=== PATIENT | male | born 1985 | race Hispanic/Latino ===

== ENCOUNTER 2020-02-02 19:02 | Emergency (ER) | payer OTHER ==
[~2020-02-02] VITALS: Ht 182.9 cm; Wt 90.7 kg
[~2020-02-02 19:02] MED LIST: AMARYL2 MG PO; BENTYL10 MG PO; CIPROFLOXACIN500 MG PO; DIPHENOXYLATE-1 EACH PO; METFORMIN HCL500 MG PO; PHENERGAN SUPP25 MG PO; PROMETHAZINE HC25 M1 PO; ULTRAM50 MG PO; VICOPROFEN 2001 EACH PO; ZOFRAN ODT4 MG PO
[2020-02-02] MEDS ORDERED: MORPHINE SULFATE INJ 4 MG/ML INJ 1ML IV STA (20:06)
[2020-02-02] MEDS ORDERED: ONDANSETRON HCL INJ 2MG/ML 2ML 2 MG/ML VIAL IV STA (20:06)
[2020-02-02 20:14] LABS: BASOPHILS % 0.4 % (0.0-1.0); EOSINOPHILS # (AUTO) 0.1 (0.0-0.4); EOSINOPHILS % 0.8 % (0.0-6.0); HEMATOCRIT 46.3 % (38.2-49.6); LYMPHOCYTES # (AUTO) 1.6 (1.0-3.2); LYMPHOCYTES % 19.3 % (18.0-39.1); MEAN CORPUSCULAR HGB CONC 34.6 g/dL (31-35); MEAN CORPUSCULAR VOLUME 86.7 fL (81-99); MONOCYTES # (AUTO) 0.6 (0.2-0.8); MONOCYTES % 7.4 % (4.4-11.3); NEUTROPHILS # (AUTO) 6.1 (2.1-6.9); NEUTROPHILS % 71.7 % (38.7-80.0); PLATELET COUNT 265 x10e3/uL (140-360); RED BLOOD COUNT 5.34 x10e6/uL (4.3-5.7); RED CELL DISTRIBUTION WIDTH 12.4 % (11.7-14.4)
[2020-02-02] MEDS ORDERED: SODIUM CHLORIDE 0.9% 1000ML 1,000 ML IV SCH (20:15)
[2020-02-02] MEDS ORDERED: DIATRIZOATE MEGL/DIATRIZOA SOD 30 ML BTL PO ONE (20:21)
[2020-02-02 20:34] LABS: ALANINE AMINOTRANSFERASE 27 IU/L (0-55); ALBUMIN 4.4 g/dL (3.5-5.0); ALBUMIN/GLOBULIN RATIO 1.3 (0.8-2.0); ALKALINE PHOSPHATASE 99 IU/L (40-150); ANION GAP 17.2 mmol/L (8-16); BLOOD UREA NITROGEN 15 mg/dL (7-26); BUN/CREATININE RATIO 15 (6-25); CALCIUM 9.5 mg/dL (8.4-10.2); CARBON DIOXIDE 20 mmol/L (22-29); CHLORIDE 103 mmol/L (98-107); CREATININE, SERUM 0.97 mg/dL (0.72-1.25); EST GLOMERULAR FILTRATION RATE > 60 ML/MIN (60-); GLUCOSE 139 mg/dL (74-118); POTASSIUM 4.2 mmol/L (3.5-5.1); SODIUM 136 mmol/L (136-145)
[2020-02-02 20:44] LABS: AMYLASE 74 U/L (25-125); LIPASE 17 U/L (8-78)
[2020-02-02 21:16] LABS: CLARITY,URINE CLEAR (CLEAR); COLOR,URINE YELLOW (YELLOW)
[2020-02-02 21:17] LABS: BILIRUBIN,URINE NEGATIVE (NEGATIVE); KETONES,URINE NEGATIVE (NEGATIVE); LEUKOCYTE ESTERASE ,URINE NEGATIVE (NEGATIVE); NITRITE,URINE NEGATIVE (NEGATIVE); PROTEIN,URINE DIPSTICK 2+ (NEGATIVE); URINE UROBILINOGEN 0.2 mg/dL (0.2 - 1)
[2020-02-02 21:28] LABS: BACTERIA,URINE FEW /HPF; EPITHELIAL CELLS,URINE RARE /LPF; WBC,URINE (MAN) 0-5 /HPF (0-5)
[2020-02-02 22:53] VITALS: BP 140/87
[2020-02-03] MEDS ORDERED: SODIUM CHLORIDE 0.9% 50ML 50 ML ONE (00:32)
[2020-02-03] MEDS ORDERED: IOPAMIDOL 370 MG/ML 200 ML INFUS..BTL INJ ONE (00:32)
[2020-02-03] MEDS ORDERED: LISINOPRIL2.5 MG PO (10:42)
[2020-02-03] MEDS ORDERED: FENOFIBRATE145 MG PO (10:42)
[2020-02-03] MEDS ORDERED: GABAPENTIN300 MG PO (10:42)
[2020-02-03] MEDS ORDERED: ZOFRAN4 MG PO (10:42)
[2020-02-06] MEDS ORDERED: BASAGLAR K100 UNIT/1 SQ (09:32)
[2020-02-06] MEDS ORDERED: HUMULIN R100 UNIT/2 SQ (09:32)
[2020-02-25] MEDS ORDERED: PHENERGAN25 MG/1 M1 PO (14:32)
== END 2020-02-02 23:07 | disposition home or self-care (01) ==
LOC: ER 19:32
DX: R10.32 Left lower quadrant pain (principal); R10.31 Right lower quadrant pain; R11.2 Nausea with vomiting, unspecified; K50.90 Crohn's disease, unspecified, without complications
CPT/HCPCS: 36415; 74177; 80053; 81001; 82150; 83690; 85025; 96374; 96375; 99284; J2270; J2405; J7030; Q9967

== ENCOUNTER → 2020-02-06 | Day surgery (SDC) | payer OTHER ==
[~2020-02-06] MED LIST changes: +BASAGLAR K100 UNIT/1 SQ; +DICYCLOMINE HCL20 MG PO; +FENOFIBRATE145 MG PO; +FENTANYL CITRATE/PF 100MCG/2 ML INJ ONE; +GABAPENTIN300 MG PO; +GLUCAGON FOR INJ 1 MG VIAL ONE; +HUMULIN R100 UNIT/2 SQ; +HYOSCYAMINE 0.125 MG TAB ONE; +LIDOCAINE HCL 2% LOCAL INJ 5 ML SDV VIAL INJ ONE; +LISINOPRIL2.5 MG PO; +METOCLOPRAMIDE HCL 10 MG/2ML VIAL ONE; +METOCLOPRAMIDE10 MG PO; +MIDAZOLAM HCL 5 MG/ML VIAL ONE; +PANTOPRAZOLE 40 MG 10ML VIAL ONE; +PROPOFOL IV EMULSION 10 MG/ML 20 ML VIAL ONE; +ZOFRAN4 MG PO
[2020-02-06 11:50] VITALS: BP 105/81
--- NOTE | 2020-02-06 12:13 | Operative Report ---
DATE OF PROCEDURE: 02/06/2020 SURGEON: Myles Rodríguez MD PROCEDURES: EGD with biopsies and a colonoscopy with polypectomy. INDICATIONS FOR EGD: Heartburn indigestion, nausea, vomiting. INDICATIONS FOR COLONOSCOPY: Personal history of colon polyps, history of Crohn's disease. MEDICATIONS: The patient was done under MAC, please see anesthesiologist's note. PROCEDURE IN DETAIL: With the patient in left lateral decubitus position, a flexible fiberoptic Olympus gastroscope was introduced into the esophagus under direct visualization without difficulty. There was some patchy erythema noted in distal esophagus. The scope was then advanced with ease into the stomach, mucosa overlying the antrum revealed some patchy areas of intense erythema, there was a single erosion noted; biopsies were obtained and sent to stain for H. pylori. A uumgnhog-[id number]-vhrba amount of retained undigested food was noted in the stomach precluding visualization of the proximal body as well as the fundus. The pylorus was of normal contour and shape, it was intubated with ease and the scope was advanced all the way to the second portion of the duodenum. Biopsies were obtained from the proximal second portion and the duodenal bulb to rule out sprue. The scope was then withdrawn back into the stomach and retroflexed, and minimal part of the fundus was visualized, and the cardia appeared to be within normal limits. The scope was then straightened out, it was subsequently withdrawn. The patient tolerated the procedure well. IMPRESSION: 1. Distal esophagitis, mild. 2. Gastritis, biopsied, biopsies sent to stain for H. pylori. 3. Aetswxkh-ob-kbfqd amount of retained undigested food stuff precluding visualization of fundus and proximal body. 4. Rule out sprue. PLAN: 1. Follow up histology. 2. Initiate Protonix 40 mg one p.o. q.a.m. a.c. DESCRIPTION OF PROCEDURE: The patient was then turned around after adequate lubrication of the anal canal, a flexible fiberoptic Olympus colonoscope was inserted into the rectum with ease and advanced all the way to approximately the distal transverse colon; it was not advanced any further, secondary to the presence of large amount of retained fecal material. The scope was then withdrawn slowly, whatever was visualized, mucosa overlying the descending colon grossly appeared to be within normal limits. Other than for a minute polyp, that was removed per hot biopsy forceps. Whatever visualized of the sigmoid and the rectum appeared to be within normal limits. The scope was retroflexed into the distal rectum, small internal hemorrhoids were noted, none of which was actively bleeding. The scope was then straightened out, it was subsequently withdrawn. The patient tolerated the procedure well. IMPRESSION: 1. Poor prep colonoscopy to approximately distal transverse colon, it could not be advanced any further due to the presence of a large amount of retained fecal material. 2. Descending colon polyp, hot biopsied. 3. Internal hemorrhoids, none actively bleeding. PLAN: 1. Followup histology. 2. The patient will need a repeat colonoscopy after a better prep. Myles Rodríguez MD [facility] [place] /[id number]
== END | disposition home or self-care (01) ==
LOC: OR 07:58
PROVIDERS: ATTEND Internal Medicine Gastroenterology
DX: K29.50 Unspecified chronic gastritis without bleeding (principal); K63.5 Polyp of colon; K29.80 Duodenitis without bleeding; K20.90 Esophagitis, unspecified without bleeding; K50.90 Crohn's disease, unspecified, without complications; K31.89 Other diseases of stomach and duodenum; K21.9 Gastro-esophageal reflux disease without esophagitis; K59.00 Constipation, unspecified; K64.8 Other hemorrhoids; E78.5 Hyperlipidemia, unspecified; E11.9 Type 2 diabetes mellitus without complications; F41.9 Anxiety disorder, unspecified; Z01.810 Encounter for preprocedural cardiovascular examination; Z01.812 Encounter for preprocedural laboratory examination; Z11.59 Encounter for screening for other viral diseases; Z79.4 Long term (current) use of insulin; Z68.28 Body mass index [BMI] 28.0-28.9, adult
CPT/HCPCS: 36415; 43239; 45384; 82948; 93005; C9113; J1610; J2001; J2704; J2765; U0002; 45378; J2250; J3010

== ENCOUNTER 2020-02-07 10:02 | Emergency (ER) | payer OTHER ==
[~2020-02-07] VITALS: Ht 182.9 cm; Wt 93.0 kg
[~2020-02-07 10:02] MED LIST changes: -DICYCLOMINE HCL20 MG PO; -FENTANYL CITRATE/PF 100MCG/2 ML INJ ONE; -GLUCAGON FOR INJ 1 MG VIAL ONE; -HYOSCYAMINE 0.125 MG TAB ONE; -LIDOCAINE HCL 2% LOCAL INJ 5 ML SDV VIAL INJ ONE; -METOCLOPRAMIDE HCL 10 MG/2ML VIAL ONE; -METOCLOPRAMIDE10 MG PO; -MIDAZOLAM HCL 5 MG/ML VIAL ONE; -PANTOPRAZOLE 40 MG 10ML VIAL ONE; -PROPOFOL IV EMULSION 10 MG/ML 20 ML VIAL ONE
[2020-02-07] MEDS ORDERED: MORPHINE SULFATE 2 MG/ML SYR 1ML IV STA (10:47)
[2020-02-07] MEDS ORDERED: METOCLOPRAMIDE HCL 10 MG/2ML VIAL IV ONE (11:00)
[2020-02-07] MEDS ORDERED: SODIUM CHLORIDE 0.9% 1000ML 1,000 ML IV SCH (11:00)
[2020-02-07] MEDS ORDERED: MORPHINE SULFATE INJ 4 MG/ML INJ 1ML IV ONE (11:15)
[2020-02-07] MEDS ORDERED: SODIUM CHLORIDE 0.9% 1000ML 1,000 ML ONE (11:30)
[2020-02-07] MEDS ORDERED: METOCLOPRAMIDE HCL 10 MG/2ML VIAL ONE (11:30)
[2020-02-07] MEDS ORDERED: MORPHINE SULFATE INJ 4 MG/ML INJ 1ML ONE (11:30)
[2020-02-07] MEDS ORDERED: PANTOPRAZOLE 40 MG 10ML VIAL IV STA (12:38)
[2020-02-07] MEDS ORDERED: METOCLOPRAMIDE10 MG PO ×2 (12:53→13:06)
[2020-02-07] MEDS ORDERED: DICYCLOMINE HCL20 MG PO (13:05)
[2020-02-07 14:10] VITALS: BP 120/80
[2020-02-25] MEDS ORDERED: PHENERGAN25 MG/1 M1 PO (14:32)
== END 2020-02-07 13:20 | disposition home or self-care (01) ==
LOC: FSED 10:15
DX: R11.10 Vomiting, unspecified (principal); R19.7 Diarrhea, unspecified; R10.32 Left lower quadrant pain; E11.65 Type 2 diabetes mellitus with hyperglycemia; K50.90 Crohn's disease, unspecified, without complications; E86.0 Dehydration; E78.5 Hyperlipidemia, unspecified
CPT/HCPCS: 80048; 80076; 81003; 85025; 99284; C9113; J2270; J2765; J7030

== ENCOUNTER → 2020-03-04 | Day surgery (SDC) | payer OTHER ==
[~2020-03-04] MED LIST changes: +DICYCLOMINE HCL20 MG PO; +FENTANYL CITRATE/PF 100MCG/2 ML INJ ONE; +HYOSCYAMINE 0.125 MG TAB ONE; +HYOSCYAMINE SULFATE 0.5 MG/ML INJ IV ONE; +METOCLOPRAMIDE10 MG PO; +MIDAZOLAM HCL 2 MG/2 ML VIAL ONE; +PHENERGAN25 MG/1 M1 PO; +PROPOFOL IV EMULSION 10 MG/ML 20 ML VIAL ONE
[2020-03-04 12:38] VITALS: BP 121/86
[2020-03-04 12:53] LABS: WBC,FECAL (FECAL LACTOFERRIN) NEGATIVE (NEGATIVE)
[2020-03-04 13:59] LABS: ANION GAP 14.4 mmol/L (8-16); BLOOD UREA NITROGEN 13 mg/dL (7-26); BUN/CREATININE RATIO 12 (6-25); CALCIUM 9.6 mg/dL (8.4-10.2); CARBON DIOXIDE 24 mmol/L (22-29); CHLORIDE 104 mmol/L (98-107); CREATININE, SERUM 1.05 mg/dL (0.72-1.25); EST GLOMERULAR FILTRATION RATE > 60 ML/MIN (60-); GLUCOSE 99 mg/dL (74-118); POTASSIUM 4.4 mmol/L (3.5-5.1); SODIUM 138 mmol/L (136-145)
[2020-03-04 14:50] LABS: C DIFFICILE TOXIN A&B AMP PROB NEGATIVE (NEGATIVE)
== END | disposition home or self-care (01) ==
LOC: OR 07:51
PROVIDERS: ATTEND Internal Medicine Gastroenterology
DX: K50.90 Crohn's disease, unspecified, without complications (principal); K52.9 Noninfective gastroenteritis and colitis, unspecified; K64.8 Other hemorrhoids; K62.89 Other specified diseases of anus and rectum; R12 Heartburn; Z86.010 Personal history of colon polyps; Z68.38 Body mass index [BMI] 38.0-38.9, adult; Z87.19 Personal history of other diseases of the digestive system; E11.9 Type 2 diabetes mellitus without complications; F41.9 Anxiety disorder, unspecified; Z79.4 Long term (current) use of insulin; Z01.812 Encounter for preprocedural laboratory examination; Z20.828 Contact with and (suspected) exposure to other viral communicable diseases
CPT/HCPCS: 36415; 45380; 80048; 82948; 83630; 83993; 85651; 86140; 86256; 86671; 87045; 87177; 87328; 87493; J1980; J2250; J2704; J3010; U0002; 45378

== ENCOUNTER 2020-08-17 23:18 | Emergency (ER) | payer OTHER ==
[~2020-08-17] VITALS: Ht 182.9 cm; Wt 93.0 kg
[~2020-08-17 23:18] MED LIST changes: -FENTANYL CITRATE/PF 100MCG/2 ML INJ ONE; -HYOSCYAMINE 0.125 MG TAB ONE; -HYOSCYAMINE SULFATE 0.5 MG/ML INJ IV ONE; -MIDAZOLAM HCL 2 MG/2 ML VIAL ONE; -PROPOFOL IV EMULSION 10 MG/ML 20 ML VIAL ONE
[2020-08-17] MEDS ORDERED: CEFTRIAXONE SOD 1 GM VIAL ONE (23:43)
[2020-08-17] MEDS ORDERED: CEFTRIAXONE SOD 1 GM VIAL IM ONE (23:45)
== END 2020-08-18 00:08 | disposition home or self-care (01) ==
LOC: FSED 23:37
DX: L03.116 Cellulitis of left lower limb (principal); E11.40 Type 2 diabetes mellitus with diabetic neuropathy, unspecified; E78.5 Hyperlipidemia, unspecified; K50.90 Crohn's disease, unspecified, without complications
CPT/HCPCS: 99282; J0696

== ENCOUNTER 2021-09-05 06:54 | Inpatient (IN) | payer OTHER ==
[~2021-09-05] VITALS: Ht 182.9 cm; Wt 93.0 kg
[2021-09-05] MEDS ORDERED: ONDANSETRON HCL INJ 2MG/ML 2ML 2 MG/ML VIAL IV STA (07:03)
[2021-09-05] MEDS ORDERED: SODIUM CHLORIDE 0.9% 1000ML 1,000 ML IV ONE (07:15)
[2021-09-05] MEDS ORDERED: SODIUM CHLORIDE 0.9% 1000ML 1,000 ML ONE (07:17)
[2021-09-05 07:37] LABS: BASOPHILS % 0.3 % (0.0-1.0); EOSINOPHILS # (AUTO) 0.2 (0.0-0.4); EOSINOPHILS % 1.5 % (0.0-6.0); HEMATOCRIT 45.1 % (38.2-49.6); HEMOGLOBIN 15.6 g/dL (14.0-18.0); LYMPHOCYTES # (AUTO) 1.9 (1.0-3.2); MEAN CORPUSCULAR HEMOGLOBIN 30.8 pg (28-32); MEAN CORPUSCULAR HGB CONC 34.6 g/dL (31-35); MEAN CORPUSCULAR VOLUME 89.1 fL (81-99); MONOCYTES # (AUTO) 0.9 (0.2-0.8); MONOCYTES % 8.9 % (4.4-11.3); NEUTROPHILS # (AUTO) 7.3 (2.1-6.9); NEUTROPHILS % 70.9 % (38.7-80.0); PLATELET COUNT 257 x10e3/uL (140-360); RED BLOOD COUNT 5.06 x10e6/uL (4.3-5.7); RED CELL DISTRIBUTION WIDTH 12.4 % (11.7-14.4)
[2021-09-05 07:43] LABS: CLARITY,URINE CLEAR (CLEAR); COLOR,URINE YELLOW (YELLOW); KETONES,URINE NEGATIVE (NEGATIVE); LEUKOCYTE ESTERASE ,URINE NEGATIVE (NEGATIVE); NITRITE,URINE NEGATIVE (NEGATIVE); PROTEIN,URINE DIPSTICK 1+ (NEGATIVE); URINE UROBILINOGEN 0.2 mg/dL (0.2 - 1)
[2021-09-05] MEDS ORDERED: Morphine 4mg INJECTION 4 MG/ML INJ IV STA (07:52)
[2021-09-05] MEDS ORDERED: METHYLPREDNISOLONE SOD SUCC 125 MG/2ML VIAL IV ONE (08:00)
[2021-09-05 08:04] LABS: BACTERIA,URINE FEW /HPF; EPITHELIAL CELLS,URINE MODERATE /LPF; RBC,URINE 0-5 /HPF (0-5); WBC,URINE (MAN) 0-5 /HPF (0-5)
[2021-09-05 08:18] LABS: ALBUMIN 3.5 g/dL (3.5-5.0); ALBUMIN/GLOBULIN RATIO 0.9 (0.8-2.0); ANION GAP 14.8 mmol/L (8-16); CALCIUM 8.2 mg/dL (8.4-10.2); CREATININE, SERUM 1.01 mg/dL (0.72-1.25); POTASSIUM 3.8 mmol/L (3.5-5.1)
[2021-09-05] MEDS ORDERED: IOPAMIDOL 370 MG/ML 100 ML INFUS..BTL INJ ONE (08:43)
[2021-09-05] MEDS ORDERED: PROMETHAZINE 12.5MG/ NACL 0.9% 12.5 MG/50 ML BAG IV ONE (09:15)
[2021-09-05] MEDS ORDERED: Morphine 4mg INJECTION 4 MG/ML INJ IV PRN (10:15)
[2021-09-05] MEDS ORDERED: ONDANSETRON HCL INJ 2MG/ML 2ML 2 MG/ML VIAL IV PRN (10:15)
[2021-09-05] MEDS ORDERED: DEXTROSE 50% SYRINGE 50 ML IV PRN (10:30)
[2021-09-05] MEDS: SODIUM CHLORIDE 0.9% 1000ML 1,000 ML IV SCH ×2 (10:49→21:12)
[2021-09-05 12:15] VITALS: BP 125/84
[2021-09-05] MEDS: INSULIN LISPRO 100 UNIT/1 ML 3ML VIAL SQ SCH ×3 (12:27→21:17)
[2021-09-05] MEDS ORDERED: K-DUR10 MEQ PO (12:39)
[2021-09-05] MEDS: HYDROMORPHONE 1MG/1ML INJ IV PRN ×3 (12:55→20:05)
[2021-09-05] MEDS ORDERED: DICYCLOMINE HCL 20 MG TAB PO PRN (13:00)
[2021-09-05] MEDS: CIPROFLOXACIN 400 MG/D5W 200ML 200 ML IV SCH (14:00)
[2021-09-05 16:19] VITALS: BP 123/88
[2021-09-05] MEDS ORDERED: INSULIN REGULAR, HUMAN 100 UNIT/1 ML SQ SCH (16:30)
[2021-09-05] MEDS: PROMETHAZINE 12.5MG/ NACL 0.9% 12.5 MG/50 ML BAG IV PRN ×2 (16:32→20:05)
[2021-09-05 20:00] VITALS: BP 112/71
[2021-09-05] MEDS: INSULIN GLARGINE 100 UNITS/ML VIAL SQ SCH (21:19)
[2021-09-06] VITALS (8 sets, daily range): BP systolic 98–118; BP diastolic 66–87
[2021-09-06] MEDS: PROMETHAZINE 12.5MG/ NACL 0.9% 12.5 MG/50 ML BAG IV PRN (00:09)
[2021-09-06] MEDS: HYDROMORPHONE 1MG/1ML INJ IV PRN ×9 (00:09→21:29)
[2021-09-06] MEDS: CIPROFLOXACIN 400 MG/D5W 200ML 200 ML IV SCH ×2 (01:20→12:00)
[2021-09-06] MEDS ORDERED: SODIUM CHLORIDE 0.9% 250ML 250 ML ONE (01:45)
[2021-09-06] MEDS: SODIUM CHLORIDE 0.9% 1000ML 1,000 ML IV SCH ×3 (02:26→17:00)
[2021-09-06] MEDS: DICYCLOMINE HCL 20 MG TAB PO SCH ×3 (05:54→21:29)
[2021-09-06 05:57] LABS: BASOPHILS % 0.2 % (0.0-1.0); EOSINOPHILS % 0.2 % (0.0-6.0); HEMATOCRIT 38.2 % (38.2-49.6); HEMOGLOBIN 12.9 g/dL (14.0-18.0); LYMPHOCYTES % 22.3 % (18.0-39.1); MEAN CORPUSCULAR HEMOGLOBIN 31.2 pg (28-32); MEAN CORPUSCULAR HGB CONC 33.8 g/dL (31-35); MEAN CORPUSCULAR VOLUME 92.3 fL (81-99); MONOCYTES # (AUTO) 0.9 (0.2-0.8); NEUTROPHILS # (AUTO) 6.1 (2.1-6.9); NEUTROPHILS % 66.9 % (38.7-80.0); PLATELET COUNT 202 x10e3/uL (140-360); RED BLOOD COUNT 4.14 x10e6/uL (4.3-5.7); RED CELL DISTRIBUTION WIDTH 12.5 % (11.7-14.4)
[2021-09-06 06:19] LABS: ALBUMIN 2.8 g/dL (3.5-5.0); ALBUMIN/GLOBULIN RATIO 0.9 (0.8-2.0); ANION GAP 11.4 mmol/L (8-16); CALCIUM 7.5 mg/dL (8.4-10.2); CREATININE, SERUM 0.81 mg/dL (0.72-1.25); POTASSIUM 3.4 mmol/L (3.5-5.1)
[2021-09-06] MEDS ORDERED: POTASSIUM CHLORIDE 20 MEQ TAB CR PO ONE (08:00)
[2021-09-06] MEDS: INSULIN LISPRO 100 UNIT/1 ML 3ML VIAL SQ SCH ×7 (09:00→21:00)
[2021-09-06] MEDS: LISINOPRIL 2.5 MG TAB PO SCH (09:09)
[2021-09-06] MEDS: FENOFIBRATE 145 MG TAB PO SCH (09:09)
[2021-09-06 20:30] LABS: WBC,FECAL (FECAL LACTOFERRIN) POSITIVE (NEGATIVE)
[2021-09-06] MEDS: INSULIN GLARGINE 100 UNITS/ML VIAL SQ SCH (21:00)
[2021-09-07] VITALS (8 sets, daily range): BP systolic 118–131; BP diastolic 81–89
[2021-09-07] MEDS: HYDROMORPHONE 1MG/1ML INJ IV PRN ×6 (00:45→21:15)
[2021-09-07] MEDS: PROMETHAZINE 12.5MG/ NACL 0.9% 12.5 MG/50 ML BAG IV PRN ×2 (00:45→09:45)
[2021-09-07] MEDS: CIPROFLOXACIN 400 MG/D5W 200ML 200 ML IV SCH ×2 (01:00→12:45)
[2021-09-07 05:58] LABS: BASOPHILS % 0.2 % (0.0-1.0); EOSINOPHILS # (AUTO) 0.1 (0.0-0.4); EOSINOPHILS % 1.5 % (0.0-6.0); HEMATOCRIT 38.7 % (38.2-49.6); HEMOGLOBIN 13.1 g/dL (14.0-18.0); LYMPHOCYTES # (AUTO) 1.7 (1.0-3.2); LYMPHOCYTES % 20.9 % (18.0-39.1); MEAN CORPUSCULAR HGB CONC 33.9 g/dL (31-35); MEAN CORPUSCULAR VOLUME 91.5 fL (81-99); MONOCYTES # (AUTO) 0.6 (0.2-0.8); MONOCYTES % 7.1 % (4.4-11.3); NEUTROPHILS # (AUTO) 5.7 (2.1-6.9); NEUTROPHILS % 69.8 % (38.7-80.0); PLATELET COUNT 204 x10e3/uL (140-360); RED BLOOD COUNT 4.23 x10e6/uL (4.3-5.7); RED CELL DISTRIBUTION WIDTH 12.8 % (11.7-14.4)
[2021-09-07] MEDS: DICYCLOMINE HCL 20 MG TAB PO SCH ×3 (06:08→21:27)
[2021-09-07] MEDS: SODIUM CHLORIDE 0.9% 1000ML 1,000 ML IV SCH ×3 (06:08→18:02)
[2021-09-07 06:32] LABS: ALBUMIN 2.7 g/dL (3.5-5.0); ANION GAP 10.6 mmol/L (8-16); CALCIUM 7.3 mg/dL (8.4-10.2); CREATININE, SERUM 0.81 mg/dL (0.72-1.25); MAGNESIUM 1.5 MG/DL (1.3-2.1); POTASSIUM 3.6 mmol/L (3.5-5.1)
[2021-09-07] MEDS: INSULIN LISPRO 100 UNIT/1 ML 3ML VIAL SQ SCH ×7 (07:30→21:00)
[2021-09-07] MEDS: FENOFIBRATE 145 MG TAB PO SCH (09:28)
[2021-09-07] MEDS: LISINOPRIL 2.5 MG TAB PO SCH (09:29)
[2021-09-07 15:40] LABS: C DIFFICILE TOXIN A&B AMP PROB NEGATIVE (NEGATIVE)
[2021-09-07] MEDS: INSULIN GLARGINE 100 UNITS/ML VIAL SQ SCH (21:00)
[2021-09-08] VITALS (8 sets, daily range): BP systolic 123–131; BP diastolic 88–97
[2021-09-08] MEDS: HYDROMORPHONE 1MG/1ML INJ IV PRN ×6 (00:20→22:40)
[2021-09-08] MEDS: CIPROFLOXACIN 400 MG/D5W 200ML 200 ML IV SCH ×2 (01:00→13:40)
[2021-09-08] MEDS: DICYCLOMINE HCL 20 MG TAB PO SCH ×3 (05:00→21:56)
[2021-09-08] MEDS: SODIUM CHLORIDE 0.9% 1000ML 1,000 ML IV SCH ×4 (05:00→23:00)
[2021-09-08 05:52] LABS: BASOPHILS % 0.3 % (0.0-1.0); EOSINOPHILS # (AUTO) 0.1 (0.0-0.4); EOSINOPHILS % 1.7 % (0.0-6.0); HEMATOCRIT 39.8 % (38.2-49.6); HEMOGLOBIN 13.5 g/dL (14.0-18.0); LYMPHOCYTES # (AUTO) 1.4 (1.0-3.2); LYMPHOCYTES % 18.8 % (18.0-39.1); MEAN CORPUSCULAR HGB CONC 33.9 g/dL (31-35); MEAN CORPUSCULAR VOLUME 91.3 fL (81-99); MONOCYTES # (AUTO) 0.7 (0.2-0.8); MONOCYTES % 9.5 % (4.4-11.3); NEUTROPHILS # (AUTO) 5.2 (2.1-6.9); NEUTROPHILS % 69.2 % (38.7-80.0); PLATELET COUNT 236 x10e3/uL (140-360); RED BLOOD COUNT 4.36 x10e6/uL (4.3-5.7); RED CELL DISTRIBUTION WIDTH 12.6 % (11.7-14.4)
[2021-09-08 06:12] LABS: ALANINE AMINOTRANSFERASE 14 IU/L (0-55); ALBUMIN 2.6 g/dL (3.5-5.0); ALBUMIN/GLOBULIN RATIO 0.9 (0.8-2.0); ALKALINE PHOSPHATASE 57 IU/L (40-150); ANION GAP 13.1 mmol/L (8-16); BLOOD UREA NITROGEN < 5 mg/dL (7-26); CALCIUM 7.1 mg/dL (8.4-10.2); CARBON DIOXIDE 24 mmol/L (22-29); CHLORIDE 106 mmol/L (98-107); CREATININE, SERUM 0.75 mg/dL (0.72-1.25); GLUCOSE 126 mg/dL (74-118); MAGNESIUM 1.3 MG/DL (1.3-2.1); POTASSIUM 3.1 mmol/L (3.5-5.1); SODIUM 140 mmol/L (136-145)
[2021-09-08 06:13] LABS: BUN/CREATININE RATIO 7 (6-25)
[2021-09-08] MEDS: INSULIN LISPRO 100 UNIT/1 ML 3ML VIAL SQ SCH ×7 (07:30→21:56)
[2021-09-08] MEDS: LISINOPRIL 2.5 MG TAB PO SCH (08:43)
[2021-09-08] MEDS ORDERED: POTASSIUM CHLORIDE 20 MEQ TAB CR PO ONE (09:00)
[2021-09-08] MEDS: FENOFIBRATE 145 MG TAB PO SCH (09:00)
[2021-09-08] MEDS ORDERED: MAGNESIUM SULFATE 2GM/50ML 50 ML IV ONE (09:00)
[2021-09-08] MEDS ORDERED: PROPOFOL IV EMULSION 10 MG/ML 20 ML VIAL ONE (11:54)
[2021-09-08] MEDS ORDERED: MIDAZOLAM HCL 5 MG/ML VIAL ONE (13:26)
[2021-09-08] MEDS ORDERED: FENTANYL CITRATE/PF 100MCG/2 ML INJ ONE (13:26)
[2021-09-08 14:27] LABS: MAGNESIUM 1.9 MG/DL (1.3-2.1); POTASSIUM 3.8 mmol/L (3.5-5.1)
[2021-09-08] MEDS ORDERED: SUCRALFATE 1 GM/10 ML SUSP NG ONE (18:35)
[2021-09-08] MEDS: PROMETHAZINE 12.5MG/ NACL 0.9% 12.5 MG/50 ML BAG IV PRN (21:56)
[2021-09-08] MEDS: SUCRALFATE 1 GM/10 ML SUSP NG SCH (21:56)
[2021-09-08] MEDS: INSULIN GLARGINE 100 UNITS/ML VIAL SQ SCH (21:57)
[2021-09-09] VITALS: BP 142/89
[2021-09-09] MEDS: CIPROFLOXACIN 400 MG/D5W 200ML 200 ML IV SCH (01:15)
[2021-09-09] MEDS: HYDROMORPHONE 1MG/1ML INJ IV PRN ×2 (02:47→08:50)
[2021-09-09 04:00] VITALS: BP 118/84
[2021-09-09] MEDS: DICYCLOMINE HCL 20 MG TAB PO SCH (05:55)
[2021-09-09 06:56] LABS: ANION GAP 12.3 mmol/L (8-16); BLOOD UREA NITROGEN < 5 mg/dL (7-26); CALCIUM 7.2 mg/dL (8.4-10.2); CARBON DIOXIDE 26 mmol/L (22-29); CHLORIDE 105 mmol/L (98-107); CREATININE, SERUM 0.83 mg/dL (0.72-1.25); GLUCOSE 169 mg/dL (74-118); MAGNESIUM 1.7 MG/DL (1.3-2.1); POTASSIUM 3.3 mmol/L (3.5-5.1); SODIUM 140 mmol/L (136-145)
[2021-09-09 06:57] LABS: BUN/CREATININE RATIO 6 (6-25)
[2021-09-09] MEDS: INSULIN LISPRO 100 UNIT/1 ML 3ML VIAL SQ SCH ×2 (07:30→08:45)
[2021-09-09 08:20] VITALS: BP 123/84
[2021-09-09 08:50] VITALS: BP 123/84
[2021-09-09] MEDS: SODIUM CHLORIDE 0.9% 1000ML 1,000 ML IV SCH (08:50)
[2021-09-09] MEDS: LISINOPRIL 2.5 MG TAB PO SCH (08:50)
[2021-09-09] MEDS: SUCRALFATE 1 GM/10 ML SUSP NG SCH (08:57)
[2021-09-09] MEDS ORDERED: DICYCLOMINE HCL20 MG PO (09:05)
[2021-09-09] MEDS ORDERED: PANTOPRAZOLE SO40 MG PO (09:05)
[2021-09-09] MEDS ORDERED: METRONIDAZOLE500 MG PO (09:08)
[2021-09-09] MEDS ORDERED: CIPRO500 MG PO (09:08)
[2021-09-09] MEDS ORDERED: MAGNESIUM OXIDE 400 MG TAB PO ONE (09:45)
[2021-09-09] MEDS ORDERED: POTASSIUM CHLORIDE 20 MEQ TAB CR PO ONE (09:45)
[2021-09-09] MEDS ORDERED: CARAFATE1 GM/10 ML PO (10:39)
== END 2021-09-09 11:17 | disposition home or self-care (01) | DRG 386 ==
LOC: ER 08:02 → ERHOLD 10:08 → MED/SURG2 11:55 → OBSVTOIN 12:43
PROVIDERS: ADMIT Internal Medicine; ATTEND Internal Medicine
PROC: 0DB78ZX Excision of Stomach, Pylorus, Via Natural or Artificial Opening Endoscopic, Diagnostic (ICD-10-PCS; 2021-09-08)
PROC: 0DB58ZX Excision of Esophagus, Via Natural or Artificial Opening Endoscopic, Diagnostic (ICD-10-PCS; principal; 2021-09-08 17:27)
DX: K50.918 Crohn's disease, unspecified, with other complication (principal); K65.4 Sclerosing mesenteritis; N17.9 Acute kidney failure, unspecified; K29.70 Gastritis, unspecified, without bleeding; A04.8 Other specified bacterial intestinal infections; K20.0 Eosinophilic esophagitis; I25.10 Atherosclerotic heart disease of native coronary artery without angina pectoris; E78.5 Hyperlipidemia, unspecified; I12.9 Hypertensive chronic kidney disease with stage 1 through stage 4 chronic kidney disease, or unspecified chronic kidney disease; N18.1 Chronic kidney disease, stage 1; Z79.899 Other long term (current) drug therapy; K52.9 Noninfective gastroenteritis and colitis, unspecified; R15.2 Fecal urgency; E11.22 Type 2 diabetes mellitus with diabetic chronic kidney disease; E78.2 Mixed hyperlipidemia; E11.40 Type 2 diabetes mellitus with diabetic neuropathy, unspecified; Z88.8 Allergy status to other drugs, medicaments and biological substances; E86.0 Dehydration
CPT/HCPCS: 36415; 43239; 74177; 80048; 80053; 81001; 82270; 82948; 83630; 83690; 83735; 83993; 84132; 85025; 86141; 87045; 87177; 87493; 88305; 88312; 88342; 96361; 99284; J1170; J2250; J2270; J2405; J2543; J2550; J2930; J3010; J3475; J7030; J7050; Q9967

== ENCOUNTER 2022-01-26 14:37 | Emergency (ER) | payer OTHER ==
[~2022-01-26] VITALS: Ht 180.3 cm; Wt 95.3 kg
[~2022-01-26 14:37] MED LIST changes: +CARAFATE1 GM/10 ML PO; +CIPRO500 MG PO; +K-DUR10 MEQ PO; +METRONIDAZOLE500 MG PO; +PANTOPRAZOLE SO40 MG PO; -ZOFRAN4 MG PO; +ZOFRAN4 MG SL
== END 2022-01-26 16:35 | disposition home or self-care (01) ==
LOC: FSED 14:54
DX: R20.0 Anesthesia of skin (principal); G45.9 Transient cerebral ischemic attack, unspecified; E11.65 Type 2 diabetes mellitus with hyperglycemia; E11.40 Type 2 diabetes mellitus with diabetic neuropathy, unspecified; E78.5 Hyperlipidemia, unspecified; Z87.19 Personal history of other diseases of the digestive system
CPT/HCPCS: 70450; 72125; 80053; 82553; 84484; 85025; 99284

== ENCOUNTER 2022-01-28 06:24 | Inpatient (IN) | payer OTHER ==
[~2022-01-28] VITALS: Ht 180.3 cm; Wt 98.6 kg
[2022-01-28 06:54] LABS: BASOPHILS % 0.3 % (0.0-1.0); EOSINOPHILS # (AUTO) 0.3 (0.0-0.4); LYMPHOCYTES # (AUTO) 2.3 (1.0-3.2); MEAN CORPUSCULAR HEMOGLOBIN 30.5 pg (28-32); MEAN CORPUSCULAR HGB CONC 33.3 g/dL (31-35); MEAN CORPUSCULAR VOLUME 91.4 fL (81-99); MONOCYTES # (AUTO) 0.8 (0.2-0.8); MONOCYTES % 9.9 % (4.4-11.3); NEUTROPHILS # (AUTO) 4.4 (2.1-6.9); PLATELET COUNT 216 x10e3/uL (140-360); RED BLOOD COUNT 5.25 x10e6/uL (4.3-5.7); RED CELL DISTRIBUTION WIDTH 11.9 % (11.7-14.4)
[2022-01-28 06:59] LABS: AMPHETAMINES SCREEN,URINE NEGATIVE (NEGATIVE); BENZODIAZEPINES SCREEN,URINE NEGATIVE (NEGATIVE); PHENCYCLIDINE SCREEN,URINE NEGATIVE (NEGATIVE)
[2022-01-28] MEDS ORDERED: IOPAMIDOL 370 MG/ML 100 ML INFUS..BTL INJ ONE (07:05)
[2022-01-28] MEDS ORDERED: SODIUM CHLORIDE 0.9% 100 ML ONE (07:06)
[2022-01-28 07:14] LABS: ALBUMIN 3.9 g/dL (3.5-5.0); ALBUMIN/GLOBULIN RATIO 1.2 (0.8-2.0); ANION GAP 14.7 mmol/L (8-16); CREATININE, SERUM 1.2 mg/dL (0.72-1.25); POTASSIUM 3.7 mmol/L (3.5-5.1)
[2022-01-28] MEDS ORDERED: Morphine 4mg INJECTION 4 MG/ML INJ IV PRN (07:45)
[2022-01-28] MEDS ORDERED: ONDANSETRON HCL INJ 2MG/ML 2ML 2 MG/ML VIAL IV PRN (07:45)
[2022-01-28 08:58] LABS: CHOL/HDL RATIO 7.9 (3.9-4.7); CHOLESTEROL 252 MD/DL (0-199); HDL CHOLESTEROL 32 MG/DL (40-60); TRIGLYCERIDES 464 MG/DL (0-149)
[2022-01-28] MEDS: CLOPIDOGREL BISULFATE 75 MG TAB PO SCH (09:13)
[2022-01-28] MEDS: ASPIRIN 81 MG CHEW TAB PO SCH (09:13)
[2022-01-28 09:18] LABS: THYROID STIMULATING HORMONE 5.781 uIU/mL (0.350-4.940)
[2022-01-28 09:28] LABS: CREATINE KINASE MB 2.4 ng/mL (0-5.0)
[2022-01-28] MEDS ORDERED: NEURONTIN300 MG PO (10:12)
[2022-01-28] MEDS ORDERED: INFLUENZA VIRUS VAC SPLIT INJ 0.5 ML SYR IM SCH (10:30)
[2022-01-28 11:30] VITALS: BP 112/75
[2022-01-28 11:33] VITALS: BP 112/75
[2022-01-28 15:27] VITALS: BP 121/78
[2022-01-28 16:38] LABS: CREATINE KINASE 139 IU/L (30-200)
[2022-01-28] MEDS ORDERED: ENOXAPARIN SOD INJ 40 MG/0.4 ML SYR SC SCH (17:00)
[2022-01-28 17:39] LABS: FREE T4 (FREE THYROXINE) 0.94 ng/dL (0.8-1.8)
[2022-01-28 20:00] VITALS: BP 118/83
[2022-01-28] MEDS ORDERED: ATORVASTATIN 40 MG TAB PO SCH (21:00)
[2022-01-28 23:13] VITALS: BP 118/83
[2022-01-28 23:54] VITALS: BP 110/77
[2022-01-29 04:00] VITALS: BP 126/87
[2022-01-29 06:28] LABS: BASOPHILS % 0.2 % (0.0-1.0); EOSINOPHILS # (AUTO) 0.3 (0.0-0.4); EOSINOPHILS % 5.5 % (0.0-6.0); HEMATOCRIT 47.6 % (38.2-49.6); LYMPHOCYTES # (AUTO) 1.7 (1.0-3.2); LYMPHOCYTES % 29.5 % (18.0-39.1); MEAN CORPUSCULAR HEMOGLOBIN 30.9 pg (28-32); MEAN CORPUSCULAR HGB CONC 33.6 g/dL (31-35); MEAN CORPUSCULAR VOLUME 91.9 fL (81-99); MONOCYTES # (AUTO) 0.7 (0.2-0.8); MONOCYTES % 11.4 % (4.4-11.3); NEUTROPHILS # (AUTO) 3.1 (2.1-6.9); NEUTROPHILS % 52.7 % (38.7-80.0); PLATELET COUNT 208 x10e3/uL (140-360); RED BLOOD COUNT 5.18 x10e6/uL (4.3-5.7); RED CELL DISTRIBUTION WIDTH 11.9 % (11.7-14.4)
[2022-01-29 07:13] LABS: ALBUMIN 3.6 g/dL (3.5-5.0); ALBUMIN/GLOBULIN RATIO 0.9 (0.8-2.0); ANION GAP 17.9 mmol/L (8-16); CALCIUM 8.7 mg/dL (8.4-10.2); CREATININE, SERUM 1.11 mg/dL (0.72-1.25); POTASSIUM 3.9 mmol/L (3.5-5.1)
[2022-01-29 08:07] VITALS: BP 90/64
[2022-01-29 08:32] VITALS: BP 90/64
[2022-01-29] MEDS: CLOPIDOGREL BISULFATE 75 MG TAB PO SCH (09:11)
[2022-01-29] MEDS: ASPIRIN 81 MG CHEW TAB PO SCH (09:12)
[2022-01-29 13:26] VITALS: BP 127/90
[2022-02-02 11:21] LABS: CHOL/HDL RATIO 7.1 (3.9-4.7)
== END 2022-01-29 15:26 | disposition home or self-care (01) | DRG 69 ==
LOC: ER 06:30 → ERHOLD 07:46 → MED/SURG3 09:59
PROVIDERS: ADMIT Internal Medicine; ATTEND Internal Medicine
DX: G45.9 Transient cerebral ischemic attack, unspecified (principal); K50.90 Crohn's disease, unspecified, without complications; I65.21 Occlusion and stenosis of right carotid artery; E11.40 Type 2 diabetes mellitus with diabetic neuropathy, unspecified; Z79.4 Long term (current) use of insulin; E66.09 Other obesity due to excess calories; Z68.30 Body mass index [BMI] 30.0-30.9, adult; E78.5 Hyperlipidemia, unspecified; E11.69 Type 2 diabetes mellitus with other specified complication; E78.1 Pure hyperglyceridemia; Z20.822 Contact with and (suspected) exposure to COVID-19; Z79.899 Other long term (current) drug therapy; Z88.8 Allergy status to other drugs, medicaments and biological substances; K21.9 Gastro-esophageal reflux disease without esophagitis; Z23 Encounter for immunization
CPT/HCPCS: 0223U; 36415; 70496; 70498; 70551; 80053; 80061; 80307; 82550; 82553; 82948; 83036; 83721; 83735; 84439; 84443; 84484; 85025; 93005; 93880; 95819; 99284; J1650; J7050; Q9967

== ENCOUNTER 2022-02-02 20:58 | Emergency (ER) | payer OTHER ==
[~2022-02-02] VITALS: Ht 180.3 cm; Wt 98.4 kg
[~2022-02-02 20:58] MED LIST changes: +NEURONTIN300 MG PO
[2022-02-02] MEDS ORDERED: ONDANSETRON HCL INJ 2MG/ML 2ML 2 MG/ML VIAL IV STA (21:39)
[2022-02-02] MEDS ORDERED: SODIUM CHLORIDE 0.9% 1000ML 1,000 ML IV ONE (21:45)
[2022-02-02] MEDS ORDERED: Morphine 4mg INJECTION 4 MG/ML INJ IV ONE (21:45)
[2022-02-02 21:55] LABS: BASOPHILS % 0.2 % (0.0-1.0); EOSINOPHILS % 0.2 % (0.0-6.0); HEMATOCRIT 52.3 % (38.2-49.6); HEMOGLOBIN 17.5 g/dL (14.0-18.0); LYMPHOCYTES # (AUTO) 1.1 (1.0-3.2); LYMPHOCYTES % 10.1 % (18.0-39.1); MEAN CORPUSCULAR HEMOGLOBIN 30.5 pg (28-32); MEAN CORPUSCULAR HGB CONC 33.5 g/dL (31-35); MEAN CORPUSCULAR VOLUME 91.1 fL (81-99); MONOCYTES # (AUTO) 0.6 (0.2-0.8); MONOCYTES % 5.7 % (4.4-11.3); NEUTROPHILS # (AUTO) 8.8 (2.1-6.9); NEUTROPHILS % 83.4 % (38.7-80.0); PLATELET COUNT 253 x10e3/uL (140-360); RED BLOOD COUNT 5.74 x10e6/uL (4.3-5.7); RED CELL DISTRIBUTION WIDTH 11.9 % (11.7-14.4)
[2022-02-02] MEDS ORDERED: ONDANSETRON HCL INJ 2MG/ML 2ML 2 MG/ML VIAL ONE (21:56)
[2022-02-02] MEDS ORDERED: Morphine 4mg INJECTION 4 MG/ML INJ ONE (21:56)
[2022-02-02 22:14] LABS: ALBUMIN 4.6 g/dL (3.5-5.0); ALBUMIN/GLOBULIN RATIO 1.2 (0.8-2.0); ANION GAP 21.3 mmol/L (8-16); CALCIUM 9.5 mg/dL (8.4-10.2); CREATININE, SERUM 1.11 mg/dL (0.72-1.25); POTASSIUM 4.3 mmol/L (3.5-5.1)
[2022-02-02 22:35] LABS: CLARITY,URINE CLEAR (CLEAR); COLOR,URINE YELLOW (YELLOW); KETONES,URINE 2+ (NEGATIVE); LEUKOCYTE ESTERASE ,URINE NEGATIVE (NEGATIVE); NITRITE,URINE NEGATIVE (NEGATIVE); PROTEIN,URINE DIPSTICK 2+ (NEGATIVE); URINE UROBILINOGEN 1 mg/dL (0.2 - 1)
[2022-02-02 22:40] LABS: BACTERIA,URINE FEW /HPF; WBC,URINE (MAN) 0-5 /HPF (0-5)
[2022-02-02 22:41] LABS: EPITHELIAL CELLS,URINE FEW /LPF
[2022-02-02] MEDS ORDERED: PROMETHAZINE 25MG/ NS 50ML (IV) IV ONE (22:45)
[2022-02-02] MEDS ORDERED: IOPAMIDOL 370 MG/ML 100 ML INFUS..BTL INJ ONE (22:49)
[2022-02-03] MEDS ORDERED: DICYCLOMINE HCL20 MG PO (01:03)
[2022-02-03] MEDS ORDERED: PROMETHAZINE HC25 M1 PO (01:03)
[2022-02-03] MEDS ORDERED: ONDANSETRON ODT4 MG PO (01:03)
[2022-02-03 01:24] VITALS: BP 122/91
== END 2022-02-03 01:17 | disposition home or self-care (01) ==
LOC: ER 21:05
DX: R10.32 Left lower quadrant pain (principal); R11.2 Nausea with vomiting, unspecified; E11.65 Type 2 diabetes mellitus with hyperglycemia; E11.40 Type 2 diabetes mellitus with diabetic neuropathy, unspecified; E78.5 Hyperlipidemia, unspecified; Z87.19 Personal history of other diseases of the digestive system
CPT/HCPCS: 36415; 74177; 80053; 81001; 83690; 85025; 99284; J2270; J2405; J2550; J7030; Q9967

== ENCOUNTER 2024-02-05 07:51 | Inpatient (IN) | payer OTHER ==
[~2024-02-05] VITALS: Ht 180.3 cm; Wt 98.4 kg
[2024-02-05] VITALS (7 sets, daily range): BP systolic 119–130; BP diastolic 82–84; PULSE 95–103; RESP 15–20; TEMP 98.3–98.6; O2SAT 99–100
[~2024-02-05 07:51] MED LIST changes: +HUMALOG100 UNIT/1 SQ; +ONDANSETRON ODT4 MG PO
[2024-02-05 08:18] LABS: BASOPHILS % 0.2 % (0.0-1.0); EOSINOPHILS # (AUTO) 0.1 (0.0-0.4); EOSINOPHILS % 0.6 % (0.0-6.0); HEMATOCRIT 47.3 % (38.2-49.6); HEMOGLOBIN 16.4 g/dL (14.0-18.0); LYMPHOCYTES # (AUTO) 2.5 (1.0-3.2); LYMPHOCYTES % 26.5 % (18.0-39.1); MEAN CORPUSCULAR HEMOGLOBIN 31.5 pg (28-32); MEAN CORPUSCULAR HGB CONC 34.7 g/dL (31-35); MEAN CORPUSCULAR VOLUME 90.8 fL (81-99); MONOCYTES # (AUTO) 0.9 (0.2-0.8); MONOCYTES % 9.5 % (4.4-11.3); NEUTROPHILS % 62.9 % (38.7-80.0); PLATELET COUNT 180 x10e3/uL (140-360); RED BLOOD COUNT 5.21 x10e6/uL (4.3-5.7); RED CELL DISTRIBUTION WIDTH 12.1 % (11.7-14.4); WHITE BLOOD COUNT 9.52 x10e3/uL (4.8-10.8)
[2024-02-05] MEDS: ONDANSETRON HCL INJ 2MG/ML 2ML 2 MG/ML VIAL IV STA (08:29)
[2024-02-05] MEDS: SODIUM CHLORIDE 0.9% 1000ML 1,000 ML IV ONE (08:29)
[2024-02-05] MEDS: Morphine 4mg INJECTION 4 MG/ML INJ IV ONE (08:29)
[2024-02-05 08:36] LABS: ALBUMIN 3.8 g/dL (3.5-5.0); ANION GAP 16.5 mmol/L (8-16); BILIRUBIN,TOTAL 0.8 mg/dL (0.2-1.2); CALCIUM 9.6 mg/dL (8.4-10.2); CREATININE, SERUM 1.15 mg/dL (0.72-1.25); POTASSIUM 3.5 mmol/L (3.5-5.1); TOTAL PROTEIN 7.7 g/dL (6.5-8.1)
[2024-02-05] MEDS ORDERED: SODIUM CHLORIDE FLUSH 10 ML SYR INJ PRN (10:45)
[2024-02-05] MEDS ORDERED: IOPAMIDOL 370 MG/ML 100 ML INFUS..BTL INJ ONE (10:53)
[2024-02-05] MEDS ORDERED: DEXTROSE 50% SYRINGE 50 ML IV PRN (11:15)
[2024-02-05] MEDS ORDERED: HYDRALAZINE HCL 20 MG/ML VIAL IV PRN (11:15)
[2024-02-05] MEDS ORDERED: ACETAMINOPHEN 325 MG TAB PO PRN (11:15)
[2024-02-05] MEDS: INSULIN LISPRO 100 UNIT/1 ML 3ML VIAL SQ SCH (11:30)
[2024-02-05] MEDS: METRONIDAZOLE 500MG/NS 100ML 100 ML IV SCH (11:58)
[2024-02-05] MEDS: Morphine 4mg INJECTION 4 MG/ML INJ IV PRN (11:59)
[2024-02-05 12:32] LABS: INR 0.84
[2024-02-05 12:33] LABS: PARTIAL THROMBOPLASTIN TIME 30.1 seconds (23.8-35.5)
[2024-02-05 13:11] LABS: BILIRUBIN,URINE NEGATIVE (NEGATIVE); CLARITY,URINE CLEAR (CLEAR); COLOR,URINE YELLOW (YELLOW); GLUCOSE, URINE 500 (NEGATIVE); KETONES,URINE NEGATIVE (NEGATIVE); LEUKOCYTE ESTERASE ,URINE NEGATIVE (NEGATIVE); NITRITE,URINE NEGATIVE (NEGATIVE); PH,URINE 5.5 (5 - 7); PROTEIN,URINE DIPSTICK 1+ (NEGATIVE); URINE UROBILINOGEN 0.2 mg/dL (0.2 - 1)
[2024-02-05 13:33] LABS: RBC,URINE 0-5 /HPF (0-5); URIC ACID CRYSTALS,URINE MANY (FEW); WBC,URINE (MAN) 0-5 /HPF (0-5)
[2024-02-05] MEDS ORDERED: DOXEPIN HCL10 MG PO (14:29)
[2024-02-05] MEDS: ONDANSETRON HCL INJ 2MG/ML 2ML 2 MG/ML VIAL IV PRN (16:20)
[2024-02-05] MEDS ORDERED: FAMOTIDINE 20 MG TAB PO PRN (17:15)
[2024-02-05] MEDS ORDERED: Vancomycin IV 1 GM in SODIUM CHLORIDE 0.9% 250ML 250 ML IV SCH (18:00)
[2024-02-05] MEDS: VANCOMYCIN 1.5 GM/300 ML (PEG) 300 ML IV SCH (21:18)
[2024-02-05] MEDS: MELATONIN 3 MG TAB PO SCH (22:02)
[2024-02-06] VITALS (10 sets, daily range): BP systolic 110–133; BP diastolic 65–100; PULSE 86–101; RESP 17–19; TEMP 97.3–98.8; O2SAT 97–100
[2024-02-06 05:54] LABS: BASOPHILS % 0.3 % (0.0-1.0); EOSINOPHILS # (AUTO) 0.1 (0.0-0.4); EOSINOPHILS % 0.8 % (0.0-6.0); HEMATOCRIT 44.2 % (38.2-49.6); HEMOGLOBIN 14.5 g/dL (14.0-18.0); LYMPHOCYTES # (AUTO) 1.5 (1.0-3.2); LYMPHOCYTES % 19.1 % (18.0-39.1); MEAN CORPUSCULAR HEMOGLOBIN 31.1 pg (28-32); MEAN CORPUSCULAR HGB CONC 32.8 g/dL (31-35); MEAN CORPUSCULAR VOLUME 94.8 fL (81-99); MONOCYTES # (AUTO) 0.8 (0.2-0.8); MONOCYTES % 10.6 % (4.4-11.3); NEUTROPHILS # (AUTO) 5.5 (2.1-6.9); NEUTROPHILS % 68.8 % (38.7-80.0); PLATELET COUNT 159 x10e3/uL (140-360); RED BLOOD COUNT 4.66 x10e6/uL (4.3-5.7); RED CELL DISTRIBUTION WIDTH 12.1 % (11.7-14.4); WHITE BLOOD COUNT 7.95 x10e3/uL (4.8-10.8)
[2024-02-06 06:21] LABS: ALBUMIN 3.1 g/dL (3.5-5.0); ALBUMIN/GLOBULIN RATIO 0.9 (0.8-2.0); ANION GAP 12.9 mmol/L (8-16); CALCIUM 8.8 mg/dL (8.4-10.2); CREATININE, SERUM 1.1 mg/dL (0.72-1.25); POTASSIUM 3.9 mmol/L (3.5-5.1); TOTAL PROTEIN 6.4 g/dL (6.5-8.1)
[2024-02-06] MEDS: SODIUM CHLORIDE 0.9% 1000ML 1,000 ML IV SCH ×2 (08:49→14:42)
[2024-02-06] MEDS ORDERED: PROPOFOL IV EMULSION 10 MG/ML 20 ML VIAL ONE (12:21)
[2024-02-06] MEDS ORDERED: ACETAMINOPHEN 1000 MG/100 ML 100 ML IV ONE (12:21)
[2024-02-06] MEDS ORDERED: BUPIVACAINE HCL 0.5% INJ 30 ML VIAL INJ ONE (12:28)
[2024-02-06] MEDS ORDERED: LIDOCAINE 1% W/EPINEPHRINE 20 ML VIAL ONE (12:28)
[2024-02-06] MEDS ORDERED: DOXEPIN HCL 10 MG CAP PO PRN (13:45)
[2024-02-06] MEDS: DIPHENHYDRAMINE HCL INJ 50 MG/ML VIAL ONE (14:00)
[2024-02-06] MEDS: KETOROLAC TROMETHAMINE 30 MG/ML VIAL IV PRN (16:07)
[2024-02-06] MEDS: HYDROCODONE/APAP 7.5MG-325MG 1 EA TAB PO PRN (20:07)
[2024-02-06] MEDS: INSULIN GLARGINE 100 UNITS/ML VIAL SQ SCH (21:36)
[2024-02-06] MEDS: INSULIN LISPRO 100 UNIT/1 ML 3ML VIAL SQ SCH (22:50)
[2024-02-07] VITALS (10 sets, daily range): BP systolic 115–130; BP diastolic 79–98; PULSE 71–91; RESP 15–21; TEMP 97.4–99; O2SAT 96–99
[2024-02-07 08:33] LABS: BASOPHILS % 0.2 % (0.0-1.0); EOSINOPHILS # (AUTO) 0.1 (0.0-0.4); HEMATOCRIT 41.3 % (38.2-49.6); HEMOGLOBIN 13.5 g/dL (14.0-18.0); LYMPHOCYTES # (AUTO) 1.5 (1.0-3.2); LYMPHOCYTES % 24.3 % (18.0-39.1); MEAN CORPUSCULAR HEMOGLOBIN 31.3 pg (28-32); MEAN CORPUSCULAR HGB CONC 32.7 g/dL (31-35); MEAN CORPUSCULAR VOLUME 95.8 fL (81-99); MONOCYTES # (AUTO) 0.6 (0.2-0.8); MONOCYTES % 9.9 % (4.4-11.3); NEUTROPHILS % 64.1 % (38.7-80.0); PLATELET COUNT 152 x10e3/uL (140-360); RED BLOOD COUNT 4.31 x10e6/uL (4.3-5.7); WHITE BLOOD COUNT 6.18 x10e3/uL (4.8-10.8)
[2024-02-07] MEDS: INSULIN LISPRO 100 UNIT/1 ML 3ML VIAL SQ SCH ×3 (08:51→16:36)
[2024-02-07 08:56] LABS: ALBUMIN 2.8 g/dL (3.5-5.0); ALBUMIN/GLOBULIN RATIO 0.9 (0.8-2.0); ANION GAP 12.5 mmol/L (8-16); BILIRUBIN,TOTAL 0.5 mg/dL (0.2-1.2); CALCIUM 8.4 mg/dL (8.4-10.2); CREATININE, SERUM 1.02 mg/dL (0.72-1.25); POTASSIUM 3.5 mmol/L (3.5-5.1); TOTAL PROTEIN 5.9 g/dL (6.5-8.1)
[2024-02-07] MEDS: LISINOPRIL 2.5 MG TAB PO SCH (09:04)
[2024-02-07 15:07] LABS: FREE T4 (FREE THYROXINE) 1.45 ng/dL (0.8-1.8); THYROID STIMULATING HORMONE 3.258 uIU/mL (0.350-4.940)
[2024-02-07] MEDS: INSULIN GLARGINE 100 UNITS/ML VIAL SQ SCH (21:45)
[2024-02-08] VITALS: BP 119/82; PULSE 97; RESP 18; TEMP 98.1; O2SAT 99
[2024-02-08] MEDS: PROMETHAZINE 12.5MG/ NACL 0.9% 12.5 MG/50 ML BAG IV ONE (03:29)
[2024-02-08 04:00] VITALS: BP 120/80; PULSE 94; RESP 18; TEMP 98.3; O2SAT 99
[2024-02-08 06:10] LABS: BASOPHILS % 0.3 % (0.0-1.0); EOSINOPHILS % 0.5 % (0.0-6.0); HEMATOCRIT 39.4 % (38.2-49.6); HEMOGLOBIN 13.1 g/dL (14.0-18.0); LYMPHOCYTES # (AUTO) 1.5 (1.0-3.2); LYMPHOCYTES % 23.2 % (18.0-39.1); MEAN CORPUSCULAR HEMOGLOBIN 31.6 pg (28-32); MEAN CORPUSCULAR HGB CONC 33.2 g/dL (31-35); MEAN CORPUSCULAR VOLUME 94.9 fL (81-99); MONOCYTES # (AUTO) 0.6 (0.2-0.8); MONOCYTES % 10.2 % (4.4-11.3); NEUTROPHILS # (AUTO) 4.1 (2.1-6.9); NEUTROPHILS % 65.3 % (38.7-80.0); PLATELET COUNT 175 x10e3/uL (140-360); RED BLOOD COUNT 4.15 x10e6/uL (4.3-5.7); RED CELL DISTRIBUTION WIDTH 12.2 % (11.7-14.4); WHITE BLOOD COUNT 6.29 x10e3/uL (4.8-10.8)
[2024-02-08 06:21] VITALS: PULSE 81; RESP 20; O2SAT 98
[2024-02-08 06:40] LABS: CREATININE, SERUM 0.88 mg/dL (0.72-1.25)
[2024-02-08 07:47] VITALS: BP 121/81; PULSE 72; RESP 20; TEMP 98.5; O2SAT 95
[2024-02-08 11:35] VITALS: BP 123/81; PULSE 86; RESP 21; TEMP 98.5; O2SAT 95
[2024-02-08 15:09] VITALS: BP 127/82; PULSE 81; RESP 19; TEMP 97.8; O2SAT 95
[2024-02-08] MEDS ORDERED: LEVOFLOXACIN750 MG PO (16:42)
[2024-02-08] MEDS ORDERED: Insulin Lispro SQ (16:42)
[2024-02-08] MEDS ORDERED: Insulin Glargine SQ (16:42)
[2024-02-08] MEDS ORDERED: INSULIN GLARGINE 100 UNITS/ML VIAL SQ SCH (21:00)
== END 2024-02-08 17:49 | disposition home or self-care (01) | DRG 571 ==
LOC: ER 07:54 → ERHOLD 10:41 → MED/SURG2 13:43 → OBSVTOIN 02-06 14:18
PROVIDERS: ADMIT Internal Medicine; ATTEND Internal Medicine
PROC: 0JBL0ZZ Excision of Right Upper Leg Subcutaneous Tissue and Fascia, Open Approach (ICD-10-PCS; 2024-02-06)
PROC: 0KBN0ZZ Excision of Right Hip Muscle, Open Approach (ICD-10-PCS; 2024-02-06)
PROC: 0JB90ZZ Excision of Buttock Subcutaneous Tissue and Fascia, Open Approach (ICD-10-PCS; principal; 2024-02-06 12:55)
DX: L02.31 Cutaneous abscess of buttock (principal); E87.1 Hypo-osmolality and hyponatremia; L02.214 Cutaneous abscess of groin; L02.415 Cutaneous abscess of right lower limb; K50.90 Crohn's disease, unspecified, without complications; M60.051 Infective myositis, right thigh; L03.317 Cellulitis of buttock; E10.65 Type 1 diabetes mellitus with hyperglycemia; E10.42 Type 1 diabetes mellitus with diabetic polyneuropathy; E10.22 Type 1 diabetes mellitus with diabetic chronic kidney disease; I12.9 Hypertensive chronic kidney disease with stage 1 through stage 4 chronic kidney disease, or unspecified chronic kidney disease; N18.1 Chronic kidney disease, stage 1; Z79.85 Long-term (current) use of injectable non-insulin antidiabetic drugs; Z79.4 Long term (current) use of insulin; E78.5 Hyperlipidemia, unspecified; K21.9 Gastro-esophageal reflux disease without esophagitis; E66.01 Morbid (severe) obesity due to excess calories; Z68.30 Body mass index [BMI] 30.0-30.9, adult; K76.0 Fatty (change of) liver, not elsewhere classified; N20.0 Calculus of kidney; Z86.73 Personal history of transient ischemic attack (TIA), and cerebral infarction without residual deficits; Z79.899 Other long term (current) drug therapy
CPT/HCPCS: 36415; 74177; 80048; 80053; 80061; 80202; 81001; 82948; 83036; 83605; 83690; 84439; 84443; 85025; 85610; 85730; 87040; 87071; 87075; 87205; 94799; 99252; 99284; G0378; J1200; J1885; J2270; J2405; J2543; J2550; J7030; J7040; Q9967

== ENCOUNTER 2024-05-19 18:21 | Emergency (ER) | payer OTHER ==
[~2024-05-19] VITALS: Ht 180.3 cm; Wt 98.4 kg
[~2024-05-19 18:21] MED LIST changes: +DOXEPIN HCL10 MG PO; +Insulin Glargine SQ; +Insulin Lispro SQ; +LEVOFLOXACIN750 MG PO
[2024-05-19 18:22] VITALS: TEMP 97.5
[2024-05-19] MEDS: KETOROLAC TROMETHAMINE 60 MG/2 ML VIAL IM ONE (19:01)
[2024-05-19] MEDS: CYCLOBENZAPRINE HCL 10 MG TAB PO ONE (19:02)
[2024-05-19 19:31] VITALS: BP 129/92; PULSE 85; RESP 16
[2024-05-19 19:42] VITALS: PULSE 87; RESP 16; O2SAT 96
[2024-05-19] MEDS ORDERED: CYCLOBENZAPRINE10 MG PO (19:59)
== END 2024-05-19 20:06 | disposition home or self-care (01) ==
LOC: ER 18:36
DX: M25.552 Pain in left hip (principal); M54.32 Sciatica, left side; E11.40 Type 2 diabetes mellitus with diabetic neuropathy, unspecified; E78.5 Hyperlipidemia, unspecified; Z87.19 Personal history of other diseases of the digestive system
CPT/HCPCS: 99283; J1885

== ENCOUNTER 2024-05-24 07:04 | Inpatient (IN) | payer OTHER ==
[~2024-05-24] VITALS: Ht 180.3 cm; Wt 98.4 kg
[2024-05-24] VITALS (9 sets, daily range): BP systolic 112–168; BP diastolic 83–111; PULSE 70–106; RESP 15–18; TEMP 97.6–98.3; O2SAT 100
[~2024-05-24 07:04] MED LIST changes: +CYCLOBENZAPRINE10 MG PO
[2024-05-24] MEDS: HYDROCODONE/APAP 10MG-325MG TAB PO ONE (07:29)
[2024-05-24] MEDS ORDERED: DEXTROSE 50% SYRINGE 50 ML IV PRN (10:30)
[2024-05-24] MEDS ORDERED: ACETAMINOPHEN 325 MG TAB PO PRN (10:30)
[2024-05-24] MEDS ORDERED: POLYETHYLENE GLYCOL 3350 17 GM PACK PO PRN (10:30)
[2024-05-24] MEDS: INSULIN LISPRO 100 UNIT/1 ML 3ML VIAL SQ SCH (11:30)
[2024-05-24] MEDS: Morphine 4mg INJECTION 4 MG/ML INJ IV PRN (11:40)
[2024-05-24 13:11] LABS: BASOPHILS % 0.3 % (0.0-1.0); EOSINOPHILS % 0.3 % (0.0-6.0); HEMOGLOBIN 18.7 g/dL (14.0-18.0); LYMPHOCYTES % 27.9 % (18.0-39.1); MEAN CORPUSCULAR HEMOGLOBIN 31.4 pg (28-32); MEAN CORPUSCULAR HGB CONC 34.6 g/dL (31-35); MEAN CORPUSCULAR VOLUME 90.8 fL (81-99); MONOCYTES # (AUTO) 0.4 (0.2-0.8); MONOCYTES % 6.2 % (4.4-11.3); NEUTROPHILS # (AUTO) 4.5 (2.1-6.9); NEUTROPHILS % 64.9 % (38.7-80.0); PLATELET COUNT 222 x10e3/uL (140-360); RED BLOOD COUNT 5.95 x10e6/uL (4.3-5.7); RED CELL DISTRIBUTION WIDTH 12.2 % (11.7-14.4); WHITE BLOOD COUNT 6.99 x10e3/uL (4.8-10.8)
[2024-05-24 13:42] LABS: ALBUMIN 4.4 g/dL (3.5-5.0); ALBUMIN/GLOBULIN RATIO 1.1 (0.8-2.0); ANION GAP 15.1 mmol/L (8-16); BILIRUBIN,TOTAL 1.2 mg/dL (0.2-1.2); CALCIUM 9.9 mg/dL (8.4-10.2); CREATININE, SERUM 1.33 mg/dL (0.72-1.25); POTASSIUM 4.1 mmol/L (3.5-5.1); TOTAL PROTEIN 8.4 g/dL (6.5-8.1)
[2024-05-24] MEDS: HYDROCODONE/APAP 5MG-325MG TAB PO PRN (14:35)
[2024-05-24] MEDS: OXYCODONE/ACETAMINOPHEN 5-325 1 EACH TABLET PO PRN (16:53)
[2024-05-24] MEDS: ENOXAPARIN SOD INJ 40 MG/0.4 ML SYR SC SCH (16:53)
[2024-05-24] MEDS: CYCLOBENZAPRINE HCL 10 MG TAB PO PRN (16:53)
[2024-05-24] MEDS: HYDROMORPHONE 1MG/1ML INJ IV PRN (20:39)
[2024-05-24] MEDS: CRESTOR 10MG PO SCH (21:28)
[2024-05-24] MEDS: INSULIN GLARGINE 100 UNITS/ML VIAL SQ SCH (21:52)
[2024-05-25 04:00] VITALS: BP 166/114; PULSE 107; RESP 18; TEMP 97.4; O2SAT 100
[2024-05-25] MEDS: ONDANSETRON HCL INJ 2MG/ML 2ML 2 MG/ML VIAL IV PRN (05:18)
[2024-05-25 08:38] VITALS: PULSE 111; RESP 20; TEMP 97.6; O2SAT 100
[2024-05-25] MEDS ORDERED: HYDRALAZINE HCL 20 MG/ML VIAL IV PRN (09:15)
[2024-05-25 09:16] LABS: BASOPHILS % 0.1 % (0.0-1.0); EOSINOPHILS % 0.6 % (0.0-6.0); HEMATOCRIT 49.1 % (38.2-49.6); HEMOGLOBIN 17.4 g/dL (14.0-18.0); LYMPHOCYTES # (AUTO) 1.9 (1.0-3.2); LYMPHOCYTES % 26.3 % (18.0-39.1); MEAN CORPUSCULAR HEMOGLOBIN 31.8 pg (28-32); MEAN CORPUSCULAR HGB CONC 35.4 g/dL (31-35); MEAN CORPUSCULAR VOLUME 89.8 fL (81-99); MONOCYTES # (AUTO) 0.6 (0.2-0.8); MONOCYTES % 7.8 % (4.4-11.3); NEUTROPHILS # (AUTO) 4.6 (2.1-6.9); NEUTROPHILS % 64.8 % (38.7-80.0); PLATELET COUNT 205 x10e3/uL (140-360); RED BLOOD COUNT 5.47 x10e6/uL (4.3-5.7); RED CELL DISTRIBUTION WIDTH 12.1 % (11.7-14.4); WHITE BLOOD COUNT 7.04 x10e3/uL (4.8-10.8)
[2024-05-25 10:05] LABS: ALBUMIN/GLOBULIN RATIO 1.2 (0.8-2.0); ANION GAP 17.3 mmol/L (8-16); BILIRUBIN,TOTAL 1.1 mg/dL (0.2-1.2); CALCIUM 9.4 mg/dL (8.4-10.2); CREATININE, SERUM 1.19 mg/dL (0.72-1.25); POTASSIUM 4.3 mmol/L (3.5-5.1); TOTAL PROTEIN 7.4 g/dL (6.5-8.1)
[2024-05-25] MEDS: HYDRALAZINE HCL 20 MG/ML VIAL IV ONE (11:10)
[2024-05-25] MEDS: LOSARTAN POTASSIUM 25 MG TAB PO SCH (11:10)
[2024-05-25] MEDS: SODIUM CHLORIDE 0.9% 1000ML 1,000 ML IV SCH (11:18)
[2024-05-25] MEDS: SENNOSIDES 8.6 MG TAB PO SCH (11:18)
[2024-05-25] MEDS: DOCUSATE SODIUM 100 MG CAP PO SCH (11:18)
[2024-05-25 13:05] VITALS: BP 138/92; PULSE 130; RESP 18; TEMP 98.1; O2SAT 98
[2024-05-25 16:30] VITALS: BP 141/96; PULSE 127; RESP 20; TEMP 97.7; O2SAT 99
[2024-05-25] MEDS: OXYCODONE/ACETAMINOPHEN 5-325 1 EACH TABLET PO PRN (16:33)
[2024-05-25 20:00] VITALS: BP 116/93; PULSE 118; RESP 18; TEMP 98.2; O2SAT 99
[2024-05-25] MEDS: INSULIN GLARGINE 100 UNITS/ML VIAL SQ SCH (20:45)
[2024-05-25 21:00] VITALS: BP 116/93; PULSE 118; RESP 18; TEMP 98.2; O2SAT 99
[2024-05-26] VITALS (9 sets, daily range): BP systolic 116–162; BP diastolic 90–109; PULSE 104–117; RESP 18; TEMP 97.8–98.2; O2SAT 97–99
[2024-05-26 05:32] LABS: BASOPHILS % 0.4 % (0.0-1.0); EOSINOPHILS # (AUTO) 0.1 (0.0-0.4); EOSINOPHILS % 0.7 % (0.0-6.0); HEMATOCRIT 48.8 % (38.2-49.6); HEMOGLOBIN 17.2 g/dL (14.0-18.0); LYMPHOCYTES # (AUTO) 1.6 (1.0-3.2); LYMPHOCYTES % 18.6 % (18.0-39.1); MEAN CORPUSCULAR HEMOGLOBIN 31.5 pg (28-32); MEAN CORPUSCULAR HGB CONC 35.2 g/dL (31-35); MEAN CORPUSCULAR VOLUME 89.4 fL (81-99); MONOCYTES # (AUTO) 0.7 (0.2-0.8); MONOCYTES % 8.4 % (4.4-11.3); NEUTROPHILS # (AUTO) 6.1 (2.1-6.9); NEUTROPHILS % 71.5 % (38.7-80.0); PLATELET COUNT 219 x10e3/uL (140-360); RED BLOOD COUNT 5.46 x10e6/uL (4.3-5.7); RED CELL DISTRIBUTION WIDTH 12.3 % (11.7-14.4); WHITE BLOOD COUNT 8.45 x10e3/uL (4.8-10.8)
[2024-05-26 05:58] LABS: ALBUMIN 3.9 g/dL (3.5-5.0); ALBUMIN/GLOBULIN RATIO 1.2 (0.8-2.0); BILIRUBIN,TOTAL 0.9 mg/dL (0.2-1.2); CALCIUM 9.7 mg/dL (8.4-10.2); CREATININE, SERUM 0.99 mg/dL (0.72-1.25); POTASSIUM 3.9 mmol/L (3.5-5.1); TOTAL PROTEIN 7.2 g/dL (6.5-8.1)
[2024-05-26 06:09] LABS: ANION GAP 17.9 mmol/L (8-16)
[2024-05-26] MEDS: INSULIN LISPRO 100 UNIT/1 ML 3ML VIAL SQ SCH (16:53)
[2024-05-26] MEDS ORDERED: INSULIN GLARGINE 100 UNITS/ML VIAL SQ SCH (21:00)
[2024-05-26] MEDS: INSULIN GLARGINE 100 UNITS/ML VIAL SQ SCH (21:24)
[2024-05-26] MEDS: OXYCODONE HCL 10 MG TAB CR PO PRN (21:25)
[2024-05-27] VITALS (10 sets, daily range): BP systolic 133–165; BP diastolic 62–104; PULSE 85–120; RESP 18–19; TEMP 97.2–98.7; O2SAT 97–99
[2024-05-27 07:05] LABS: ALBUMIN 3.8 g/dL (3.5-5.0); ALBUMIN/GLOBULIN RATIO 1.1 (0.8-2.0); ANION GAP 18.8 mmol/L (8-16); BILIRUBIN,TOTAL 0.9 mg/dL (0.2-1.2); CALCIUM 9.8 mg/dL (8.4-10.2); CREATININE, SERUM 0.96 mg/dL (0.72-1.25); POTASSIUM 3.8 mmol/L (3.5-5.1); TOTAL PROTEIN 7.4 g/dL (6.5-8.1)
[2024-05-27] MEDS ORDERED: FENTANYL CITRATE/PF 100MCG/2 ML INJ ONE (12:35)
[2024-05-27] MEDS ORDERED: MIDAZOLAM HCL 2 MG/2 ML VIAL ONE (12:35)
[2024-05-27] MEDS ORDERED: IOPAMIDOL IT ONE (12:37)
[2024-05-28] VITALS (7 sets, daily range): BP systolic 115–134; BP diastolic 80–101; PULSE 96–119; RESP 16–19; TEMP 97.6–98.6; O2SAT 97–100
[2024-05-28 06:03] LABS: BASOPHILS % 0.3 % (0.0-1.0); EOSINOPHILS % 0.3 % (0.0-6.0); HEMATOCRIT 51.8 % (38.2-49.6); HEMOGLOBIN 18.5 g/dL (14.0-18.0); LYMPHOCYTES # (AUTO) 1.8 (1.0-3.2); MEAN CORPUSCULAR HEMOGLOBIN 32.1 pg (28-32); MEAN CORPUSCULAR HGB CONC 35.7 g/dL (31-35); MEAN CORPUSCULAR VOLUME 89.8 fL (81-99); MONOCYTES # (AUTO) 0.6 (0.2-0.8); MONOCYTES % 8.2 % (4.4-11.3); NEUTROPHILS # (AUTO) 4.6 (2.1-6.9); NEUTROPHILS % 65.6 % (38.7-80.0); PLATELET COUNT 246 x10e3/uL (140-360); RED BLOOD COUNT 5.77 x10e6/uL (4.3-5.7); WHITE BLOOD COUNT 6.99 x10e3/uL (4.8-10.8)
[2024-05-28 06:14] LABS: ALBUMIN 4.1 g/dL (3.5-5.0); ANION GAP 17.3 mmol/L (8-16); BILIRUBIN,TOTAL 0.9 mg/dL (0.2-1.2); CALCIUM 9.8 mg/dL (8.4-10.2); CREATININE, SERUM 1.2 mg/dL (0.72-1.25); MAGNESIUM 1.8 MG/DL (1.3-2.1); POTASSIUM 4.3 mmol/L (3.5-5.1); TOTAL PROTEIN 8.1 g/dL (6.5-8.1)
[2024-05-29 00:40] VITALS: BP 127/85; PULSE 111; RESP 18; TEMP 98.5; O2SAT 98
[2024-05-29 05:03] VITALS: BP 121/85; PULSE 92; RESP 17; TEMP 97.5; O2SAT 98
[2024-05-29 08:00] VITALS: BP_SYST 121; BP_SYST 135; BP_DIAS 50; BP_DIAS 86; PULSE 97; RESP 19; TEMP 97.5; O2SAT 98
[2024-05-29] MEDS: METOPROLOL SUCCINATE 25 MG TAB XL PO SCH (10:24)
[2024-05-29 11:37] LABS: CHOL/HDL RATIO 7.1 (3.9-4.7)
[2024-05-29 11:57] LABS: THYROID STIMULATING HORMONE 1.452 uIU/mL (0.350-4.940)
[2024-05-29 12:00] VITALS: BP 128/88; PULSE 97; RESP 18; TEMP 97.9; O2SAT 100
[2024-05-29 16:00] VITALS: BP 113/79; PULSE 101; RESP 18; TEMP 98.2; O2SAT 100
[2024-05-29] MEDS ORDERED: COZAAR25 MG PO (17:34)
[2024-05-29] MEDS ORDERED: Rosuvastatin Calcium PO (17:34)
[2024-05-29] MEDS ORDERED: TOPROL XL25 MG PO (17:34)
== END 2024-05-29 18:50 | disposition home or self-care (01) | DRG 552 ==
LOC: ER 07:19 → ERHOLD 07:24 → MED/SURG2 09:46 → OBSVTOIN 05-25 15:40
PROVIDERS: ADMIT Internal Medicine; ATTEND Internal Medicine
PROC: 3E0S3BZ Introduction of Anesthetic Agent into Epidural Space, Percutaneous Approach (ICD-10-PCS; principal; 2024-05-27 12:37)
DX: M51.06 Intervertebral disc disorders with myelopathy, lumbar region (principal); K50.90 Crohn's disease, unspecified, without complications; N17.9 Acute kidney failure, unspecified; E11.22 Type 2 diabetes mellitus with diabetic chronic kidney disease; I12.9 Hypertensive chronic kidney disease with stage 1 through stage 4 chronic kidney disease, or unspecified chronic kidney disease; E11.65 Type 2 diabetes mellitus with hyperglycemia; E11.42 Type 2 diabetes mellitus with diabetic polyneuropathy; M54.42 Lumbago with sciatica, left side; M47.26 Other spondylosis with radiculopathy, lumbar region; N18.1 Chronic kidney disease, stage 1; E78.2 Mixed hyperlipidemia; K21.9 Gastro-esophageal reflux disease without esophagitis; E66.811 Obesity, class 1; Z68.30 Body mass index [BMI] 30.0-30.9, adult; Z86.73 Personal history of transient ischemic attack (TIA), and cerebral infarction without residual deficits; Z90.49 Acquired absence of other specified parts of digestive tract; Z88.8 Allergy status to other drugs, medicaments and biological substances; Z82.49 Family history of ischemic heart disease and other diseases of the circulatory system
CPT/HCPCS: 36415; 72148; 77002; 80053; 80061; 82948; 83605; 83735; 84443; 85025; 93005; 93306; 96372; 99252; 99284; G0378; J0360; J1171; J1650; J1815; J2250; J2270; J2405; J7030